=== PATIENT | male | born 1980 | race Caucasian/White ===

== ENCOUNTER → 2019-03-10 | Outpatient (CLI) | payer MEDICAID, SELFPAY ==
[2019-03-10 08:33] LABS: Absolute Lymphocyte Count 2.25 X10^3/ul (0.83-4.51); Absolute Neutrophil Count 2.6 X10^3/uL (2.0-7.7); Basophil# 0.02 X10^3/uL; Basophil% 0.4 % (0-1); Eosinophil# 0.18 X10^3/uL; Eosinophils% 3.3 % (0-5); Hematocrit 45.5 % (40-54); Hemoglobin 15.2 g/dl (13.0-16.5); Lymphocyte # 2.25 X10^3/ul (4.0); Lymphocyte % 41.2 % (19-41); Mean Corp Hgb Conc 33.4 g/gl (32-36); Mean Corpuscular Hgb 28.7 pg (27.0-32.0); Mean Platelet Vol. 10.1 fl (6.2-12.0); Monocyte# 0.43 X10^3/uL; Monocyte% 7.9 % (0-10); Neutrophil # 2.55 X10^3/uL (2.7-7.7); Neutrophil % 46.7 % (47-70); Platelet Count 260 K/mm3 (150-450); RBC Distribution Width CV 13.3 % (11.6-14.6); RBC Distribution Width SD 41.4 fl (35.1-43.9); Red Blood Count 5.29 M/mm3 (4.6-6.2); White Blood Count 5.5 K/mm3 (4.4-11.0)
[2019-03-10 08:40] LABS: POSITIVE COUNT NO; POSITIVE DIFFERENTIAL NO; POSITIVE MORPHOLOGY NO
[2019-03-10 09:05] LABS: AST(SGOT) 31 U/L (15-37); Alanine Aminotransfer ALT/SGPT 72 U/L (16-61); Albumin, Serum 3.7 g/dL (3.2-5.0); Alkaline Phosphatase 59 U/L (45-117); Anion Gap 8 (5-15); BUN 19 mg/dL (7-18); BUN/Creat Ratio 19.3 RATIO (10-20); Calcium,Total 8.9 mg/dL (8.5-10.1); Chloride 105 mmol/L (98-107); Cholesterol 212 mg/dL (200); Creatinine, Serum 0.99 mg/dL (0.70-1.30); EST Glomerular Filtration Rate 89 mL/min (>60); Est Glom Filt Rate - Afr Amer 108 mL/min (>60); Globulin 3.6 g/dL (2.2-4.2); Glucose 98 mg/dL (74-106); High Density Lipoprotein 50 mg/dL; Potassium 4.4 mmol/L (3.5-5.1); Protein, Total 7.3 g/dL (6.4-8.2); Sodium Level 141 mmol/L (136-145); Triglycerides 147 mg/dL; Very Low Density Lipoprotein 29 mg/dL (5-40)
[2019-03-14 06:07] LABS: QNTFERON TB Mitogen Value > 10.00 IU/mL (.); QNTFERON TB Nil Value 0.02 IU/mL (.); QNTFERON TB1+ Ag Value 0.02 IU/mL (.); QNTFERON TB2+ Ag Value 0.05 IU/mL (.)
[2019-03-14 11:19] LABS: QNTIFERON TB Positive Criteria Negative (Negative)
== END | disposition home or self-care (01) ==
LOC: LAB.FUTURE 08:03
PROVIDERS: Family Provider Family Medicine; PCP Family Medicine; Referring Provider Family Medicine; Visit Provider Family Medicine
DX: E78.5 Hyperlipidemia, unspecified (principal); I10 Essential (primary) hypertension; K21.9 Gastro-esophageal reflux disease without esophagitis; Z79.899 Other long term (current) drug therapy
CPT/HCPCS: 36415; 80053; 80061; 85025; 86480

== ENCOUNTER → 2019-09-01 09:22 | Outpatient (CLI) | payer MEDICAID, SELFPAY ==
[2019-09-01 10:10] LABS: Absolute Neutrophil Count 0.9 X10^3/uL (2.0-7.7); Basophil# 0.02 X10^3/uL; Basophil% 0.7 % (0-1); Eosinophil# 0.19 X10^3/uL; Eosinophils% 6.3 % (0-5); Hematocrit 46.2 % (40-54); Lymphocyte % 43.3 % (19-41); Mean Corp Hgb Conc 32.5 g/dL (32-36); Mean Corpuscular Hgb 28.9 pg (27.0-32.0); Mean Platelet Vol. 10.5 fl (6.2-12.0); Monocyte# 0.58 X10^3/uL; Monocyte% 19.3 % (0-10); NRBC Flagged by Analyzer 0 % (0-5); Neutrophil # 0.91 X10^3/uL (2.7-7.7); Neutrophil % 30.4 % (47-70); POSITIVE DIFFERENTIAL YES; Platelet Count 206 K/mm3 (150-450); RBC Distribution Width CV 13.2 % (11.6-14.6); RBC Distribution Width SD 43.5 fl (35.1-43.9); Red Blood Count 5.19 M/mm3 (4.6-6.2)
[2019-09-01 10:13] LABS: Differential Indicated SCAN CRITERIA MET
[2019-09-01 10:43] LABS: ALB/GLOB Ratio 1.1 RATIO (0.9-2.4); AST(SGOT) 51 U/L (15-37); Alanine Aminotransfer ALT/SGPT 82 U/L (16-61); Alkaline Phosphatase 69 U/L (45-117); Anion Gap 5 (5-15); BUN 18 mg/dL (7-18); BUN/Creat Ratio 14.5 RATIO (10-20); Chloride 104 mmol/L (98-107); Creatinine, Serum 1.24 mg/dL (0.70-1.30); EST Glomerular Filtration Rate 69 mL/min (>60); Est Glom Filt Rate - Afr Amer 83 mL/min (>60); Globulin 3.5 g/dL (2.2-4.2); Glucose 94 mg/dL (74-106); Potassium 4.5 mmol/L (3.5-5.1); Protein, Total 7.5 g/dL (6.4-8.2); Sodium Level 139 mmol/L (136-145)
[2019-09-01 10:46] LABS: Platelet Estimate ADEQUATE (ADEQ); Red Cell Morphology NORM C+C NORMAL (NORM C&C)
== END ==
LOC: LAB.FUTURE 09:25 → BFHLAB 02-21 13:57
PROVIDERS: Family Provider Family Medicine; PCP Family Medicine; Referring Provider Family Medicine; Visit Provider Family Medicine
DX: E78.5 Hyperlipidemia, unspecified (principal); I10 Essential (primary) hypertension; K21.9 Gastro-esophageal reflux disease without esophagitis; L40.9 Psoriasis, unspecified
CPT/HCPCS: 36415; 80053; 85025

== ENCOUNTER → 2019-10-27 | Outpatient (CLI) | payer OTHER, SELFPAY ==
[2019-10-27 10:20] LABS: Absolute Lymphocyte Count 1.98 X10^3/uL (0.83-4.51); Absolute Neutrophil Count 2.5 X10^3/uL (2.0-7.7); Basophil# 0.03 X10^3/uL; Basophil% 0.6 % (0-1); Eosinophil# 0.21 X10^3/uL; Eosinophils% 3.9 % (0-5); Hematocrit 47.7 % (40-54); Hemoglobin 15.3 g/dL (13.0-16.5); Lymphocyte # 1.98 X10^3/ul (4.0); Lymphocyte % 37.1 % (19-41); Mean Corp Hgb Conc 32.1 g/dL (32-36); Mean Corpuscular Hgb 29.1 pg (27.0-32.0); Mean Corpuscular Volume 90.7 fL (80-94); Mean Platelet Vol. 10.3 fl (6.2-12.0); Monocyte# 0.54 X10^3/uL; Monocyte% 10.1 % (0-10); NRBC Flagged by Analyzer 0 % (0-5); Neutrophil # 2.52 X10^3/uL (2.7-7.7); Neutrophil % 47.4 % (47-70); Platelet Count 252 K/mm3 (150-450); RBC Distribution Width CV 13.6 % (11.6-14.6); RBC Distribution Width SD 45.3 fl (35.1-43.9); Red Blood Count 5.26 M/mm3 (4.6-6.2); White Blood Count 5.3 K/mm3 (4.4-11.0)
[2019-10-27 11:13] LABS: AST(SGOT) 23 U/L (15-37); Alanine Aminotransfer ALT/SGPT 58 U/L (16-61); Alkaline Phosphatase 72 U/L (45-117); Anion Gap 4 (5-15); BUN 23 mg/dL (7-18); BUN/Creat Ratio 21.9 RATIO (10-20); Bilirubin, Direct 0.09 mg/dL (0.00-0.30); Calcium,Total 9.1 mg/dL (8.5-10.1); Chloride 107 mmol/L (98-107); Creatinine, Serum 1.05 mg/dL (0.70-1.30); EST Glomerular Filtration Rate 83 mL/min (>60); Est Glom Filt Rate - Afr Amer 100 mL/min (>60); Globulin 3.5 g/dL (2.2-4.2); Glucose 91 mg/dL (74-106); Potassium 4.7 mmol/L (3.5-5.1); Protein, Total 7.5 g/dL (6.4-8.2); Sodium Level 140 mmol/L (136-145)
[2019-10-31 08:08] LABS: QNTFERON TB Mitogen Value > 10.00 IU/mL (.); QNTFERON TB Nil Value 0.02 IU/mL (.); QNTFERON TB1+ Ag Value 0.02 IU/mL (.); QNTFERON TB2+ Ag Value 0.02 IU/mL (.)
[2019-10-31 14:07] LABS: QNTIFERON TB Positive Criteria Negative (Negative)
== END | disposition home or self-care (01) ==
LOC: LAB 08:21
PROVIDERS: PCP Family Medicine; Referring Provider Physician Assistant; Visit Provider Physician Assistant
DX: L40.0 Psoriasis vulgaris (principal); Z79.899 Other long term (current) drug therapy
CPT/HCPCS: 36415; 80048; 80076; 85025; 86480

== ENCOUNTER → 2020-02-23 | Outpatient (CLI) | payer OTHER, SELFPAY ==
[2020-02-23 08:19] LABS: Absolute Lymphocyte Count 2.25 X10^3/uL (0.83-4.51); Absolute Neutrophil Count 3.4 X10^3/uL (2.0-7.7); Basophil# 0.04 X10^3/uL; Basophil% 0.6 % (0-1); Eosinophil# 0.24 X10^3/uL; Eosinophils% 3.6 % (0-5); Hematocrit 45.2 % (40-54); Hemoglobin 14.6 g/dL (13.0-16.5); Lymphocyte # 2.25 X10^3/ul (4.0); Lymphocyte % 33.5 % (19-41); Mean Corp Hgb Conc 32.3 g/dL (32-36); Mean Corpuscular Hgb 28.7 pg (27.0-32.0); Mean Platelet Vol. 10.3 fl (6.2-12.0); Monocyte# 0.73 X10^3/uL; Monocyte% 10.9 % (0-10); NRBC Flagged by Analyzer 0 % (0-5); Neutrophil # 3.42 X10^3/uL (2.7-7.7); Neutrophil % 50.8 % (47-70); Platelet Count 268 K/mm3 (150-450); RBC Distribution Width CV 12.8 % (11.6-14.6); RBC Distribution Width SD 41.6 fl (35.1-43.9); Red Blood Count 5.08 M/mm3 (4.6-6.2); White Blood Count 6.7 K/mm3 (4.4-11.0)
[2020-02-23 08:44] LABS: AST(SGOT) 25 U/L (15-37); Alanine Aminotransfer ALT/SGPT 63 U/L (16-61); Albumin, Serum 3.7 g/dL (3.2-5.0); Alkaline Phosphatase 78 U/L (45-117); Anion Gap 5 (5-15); BUN 21 mg/dL (7-18); BUN/Creat Ratio 21.5 RATIO (10-20); Calcium,Total 9.2 mg/dL (8.5-10.1); Chloride 104 mmol/L (98-107); Cholesterol 136 mg/dL (200); Creatinine, Serum 0.98 mg/dL (0.70-1.30); EST Glomerular Filtration Rate 90 mL/min (>60); Est Glom Filt Rate - Afr Amer 109 mL/min (>60); Globulin 3.6 g/dL (2.2-4.2); Glucose 98 mg/dL (74-106); High Density Lipoprotein 38 mg/dL; Potassium 4.8 mmol/L (3.5-5.1); Protein, Total 7.3 g/dL (6.4-8.2); Sodium Level 138 mmol/L (136-145); Triglycerides 171 mg/dL; Very Low Density Lipoprotein 34 mg/dL (5-40)
== END | disposition home or self-care (01) ==
LOC: LAB.FUTURE 07:16
PROVIDERS: PCP Family Medicine; Visit Provider Family Medicine
DX: I10 Essential (primary) hypertension (principal); E78.5 Hyperlipidemia, unspecified; L40.9 Psoriasis, unspecified
CPT/HCPCS: 36415; 80053; 80061; 85025

== ENCOUNTER → 2021-02-07 08:05 | Outpatient (CLI) | payer OTHER, SELFPAY ==
[2021-02-07 08:59] LABS: Absolute Lymphocyte Count 2.02 X10^3/uL (0.83-4.51); Absolute Neutrophil Count 3.1 X10^3/uL (2.0-7.7); Basophil# 0.03 X10^3/uL; Basophil% 0.5 % (0-1); Eosinophil# 0.35 X10^3/uL; Eosinophils% 5.7 % (0-5); Hematocrit 46.6 % (40-54); Lymphocyte # 2.02 X10^3/ul (0.83-4.51); Mean Corp Hgb Conc 32.2 g/dL (32-36); Mean Corpuscular Hgb 28.6 pg (27.0-32.0); Mean Corpuscular Volume 88.8 fL (80-94); Mean Platelet Vol. 10.2 fl (6.2-12.0); Monocyte# 0.57 X10^3/uL; Monocyte% 9.3 % (0-10); NRBC Flagged by Analyzer 0 % (0-5); Neutrophil # 3.14 X10^3/uL (2.7-7.7); Neutrophil % 51.2 % (47-70); Platelet Count 260 K/mm3 (150-450); RBC Distribution Width CV 13.2 % (11.6-14.6); RBC Distribution Width SD 43.3 fl (35.1-43.9); Red Blood Count 5.25 M/mm3 (4.6-6.2); White Blood Count 6.1 K/mm3 (4.4-11.0)
[2021-02-07 09:21] LABS: ALB/GLOB Ratio 1.1 RATIO (0.9-2.4); AST(SGOT) 28 U/L (15-37); Alanine Aminotransfer ALT/SGPT 50 U/L (16-61); Albumin, Serum 3.9 g/dL (3.2-5.0); Alkaline Phosphatase 87 U/L (45-117); Anion Gap 3 (5-15); BUN 19 mg/dL (7-18); BUN/Creat Ratio 18.6 RATIO (10-20); Calcium,Total 9.3 mg/dL (8.5-10.1); Chloride 103 mmol/L (98-107); Cholesterol 166 mg/dL (200); Creatinine, Serum 1.02 mg/dL (0.70-1.30); EST Glomerular Filtration Rate 85 mL/min (>60); Est Glom Filt Rate - Afr Amer 103 mL/min (>60); Globulin 3.4 g/dL (2.2-4.2); Glucose 92 mg/dL (74-106); High Density Lipoprotein 48 mg/dL; Potassium 4.6 mmol/L (3.5-5.1); Protein, Total 7.3 g/dL (6.4-8.2); Sodium Level 139 mmol/L (136-145); Triglycerides 122 mg/dL; Very Low Density Lipoprotein 24 mg/dL (5-40)
[2021-02-12 12:08] LABS: Testosterone, Free 19.18 ng/dL (5.00-21.00)
[2021-02-12 15:35] LABS: Testosterone, % Free 4.82 % (1.50-4.20); Testosterone, Total 398 ng/dL (264-916)
== END ==
PROVIDERS: PCP Family Medicine; Referring Provider Family Medicine; Visit Provider Family Medicine
DX: E78.5 Hyperlipidemia, unspecified (principal); I10 Essential (primary) hypertension; K21.9 Gastro-esophageal reflux disease without esophagitis; E29.1 Testicular hypofunction
CPT/HCPCS: 36415; 80053; 80061; 84402; 84403; 85025

== ENCOUNTER 2021-09-17 17:12 | Outpatient (CLI) | payer OTHER, SELFPAY ==
[2021-09-17 17:33] VITALS: BP 137/89; PULSE 51; RESP 16; TEMP 36.8; O2SAT 96; BMI 32.1
[2021-09-17] MEDS: 0.9% Saline Lock 10 ML Syringe IV (17:51)
[2021-09-17 18:22] VITALS: BP 124/80; PULSE 60; RESP 16; TEMP 36.8; O2SAT 96
[2021-09-17 19:22] VITALS: BP 137/85; PULSE 53; RESP 16; TEMP 36.8; O2SAT 95
== END 2021-09-17 19:22 | disposition home or self-care (01) ==
LOC: MS3OUT 17:14 → MS3 17:15
PROVIDERS: PCP Family Medicine; Referring Provider Nurse Practitioner Acute Care; Visit Provider Nurse Practitioner Acute Care
DX: Z23 Encounter for immunization (principal); U07.1 COVID-19
CPT/HCPCS: J7050; M0245; Q0245; A4216

== ENCOUNTER → 2023-01-28 | Outpatient (CLI) | payer OTHER, SELFPAY ==
[2023-01-28 08:57] LABS: Absolute Lymphocyte Count 1.78 X10^3/uL (0.83-4.51); Absolute Neutrophil Count 2.4 X10^3/uL (2.0-7.7); Basophil# 0.03 X10^3/uL; Basophil% 0.6 % (0-1); Eosinophil# 0.15 X10^3/uL; Hematocrit 46.6 % (40-54); Hemoglobin 15.1 g/dL (13.0-16.5); Lymphocyte # 1.78 X10^3/ul (0.83-4.51); Lymphocyte % 35.8 % (19-41); Mean Corp Hgb Conc 32.4 g/dL (32-36); Mean Corpuscular Hgb 28.7 pg (27.0-32.0); Mean Corpuscular Volume 88.6 fL (80-94); Mean Platelet Vol. 9.7 fl (6.2-12.0); Monocyte# 0.62 X10^3/uL; Monocyte% 12.5 % (0-10); NRBC Flagged by Analyzer 0 % (0-5); Neutrophil # 2.37 X10^3/uL (2.7-7.7); Neutrophil % 47.7 % (47-70); Platelet Count 272 K/mm3 (150-450); RBC Distribution Width CV 13.4 % (11.6-14.6); RBC Distribution Width SD 43.5 fl (35.1-43.9); Red Blood Count 5.26 M/mm3 (4.6-6.2)
[2023-01-28 09:34] LABS: ALB/GLOB Ratio 1.2 RATIO (0.9-2.4); AST(SGOT) 40 U/L (15-37); Alanine Aminotransfer ALT/SGPT 60 U/L (16-61); Albumin, Serum 3.7 g/dL (3.2-5.0); Alkaline Phosphatase 70 U/L (45-117); Anion Gap 5 (5-15); BUN 20 mg/dL (7-18); BUN/Creat Ratio 21.3 RATIO (10-20); Calcium,Total 9.1 mg/dL (8.5-10.1); Chloride 103 mmol/L (98-107); Cholesterol 155 mg/dL (200); Creatinine, Serum 0.94 mg/dL (0.70-1.30); EST Glomerular Filtration Rate 93 mL/min (>60); Est Glom Filt Rate - Afr Amer 113 mL/min (>60); Globulin 3.1 g/dL (2.2-4.2); Glucose 90 mg/dL (74-106); High Density Lipoprotein 46 mg/dL; Protein, Total 6.8 g/dL (6.4-8.2); Sodium Level 137 mmol/L (136-145); Triglycerides 170 mg/dL; Very Low Density Lipoprotein 34 mg/dL (5-40)
== END | disposition home or self-care (01) ==
LOC: LAB.FUTURE 07:55 → LAB 07:57
PROVIDERS: PCP Family Medicine; Referring Provider Family Medicine; Visit Provider Family Medicine
DX: I10 Essential (primary) hypertension (principal); E78.5 Hyperlipidemia, unspecified; K21.9 Gastro-esophageal reflux disease without esophagitis
CPT/HCPCS: 36415; 80053; 80061; 85025

== ENCOUNTER → 2024-04-26 | Outpatient (CLI) | payer OTHER, SELFPAY ==
[2024-04-26 09:44] LABS: Absolute Lymphocyte Count 1.95 X10^3/uL (0.83-4.51); Basophil# 0.03 X10^3/uL; Basophil% 0.5 % (0-1); Eosinophil# 0.15 X10^3/uL; Eosinophils% 2.6 % (0-5); Hematocrit 45.4 % (40-54); Hemoglobin 15.1 g/dL (13.0-16.5); Lymphocyte # 1.95 X10^3/ul (0.83-4.51); Lymphocyte % 33.8 % (19-41); Mean Corp Hgb Conc 33.3 g/dL (32-36); Mean Corpuscular Hgb 28.8 pg (27.0-32.0); Mean Corpuscular Volume 86.6 fL (80-94); Mean Platelet Vol. 9.9 fl (6.2-12.0); Monocyte# 0.61 X10^3/uL; Monocyte% 10.6 % (0-10); NRBC Flagged by Analyzer 0 % (0-5); Neutrophil # 3.01 X10^3/uL (2.7-7.7); Neutrophil % 52.2 % (47-70); Platelet Count 285 K/mm3 (150-450); RBC Distribution Width CV 13.6 % (11.6-14.6); RBC Distribution Width SD 42.9 fl (35.1-43.9); Red Blood Count 5.24 M/mm3 (4.6-6.2); White Blood Count 5.8 K/mm3 (4.4-11.0)
[2024-04-26 10:09] LABS: ALB/GLOB Ratio 1.1 RATIO (0.9-2.4); AST(SGOT) 25 U/L (15-37); Alanine Aminotransfer ALT/SGPT 53 U/L (16-61); Albumin, Serum 3.7 g/dL (3.2-5.0); Alkaline Phosphatase 79 U/L (45-117); Anion Gap 5 (5-15); BUN 16 mg/dL (7-18); BUN/Creat Ratio 15.1 RATIO (10-20); Chloride 105 mmol/L (98-107); Cholesterol 152 mg/dL (200); Creatinine, Serum 1.06 mg/dL (0.70-1.30); EST Glomerular Filtration Rate 80 mL/min (>60); Est Glom Filt Rate - Afr Amer 97 mL/min (>60); Globulin 3.3 g/dL (2.2-4.2); Glucose 93 mg/dL (74-106); High Density Lipoprotein 49 mg/dL; Potassium 4.5 mmol/L (3.5-5.1); Sodium Level 137 mmol/L (136-145); Triglycerides 90 mg/dL; Very Low Density Lipoprotein 18 mg/dL (5-40)
== END | disposition home or self-care (01) ==
PROVIDERS: PCP Family Medicine; Referring Provider Family Medicine; Visit Provider Family Medicine
DX: I10 Essential (primary) hypertension (principal); E78.5 Hyperlipidemia, unspecified; K21.9 Gastro-esophageal reflux disease without esophagitis
CPT/HCPCS: 36415; 80053; 80061; 85025

== ENCOUNTER 2024-11-09 06:02 | Day surgery (SDC) | payer OTHER, SELFPAY ==
[2024-11-09] VITALS (8 sets, daily range): BP systolic 97–143; BP diastolic 73–93; PULSE 67–78; RESP 12–18; TEMP 36.2–36.9; O2SAT 92–98; BMI 37.7
--- NOTE | 2024-11-09 07:25 | PRE.ANES_ITS ---
ASA Classification* ASA Classification ASA Classification: 2 Assessment & Plan Anesthesia* Anesthesia Assessment Anesthesia Assessment: Discussed sedation and/or anesthesia options, risks, benefits, and alternatives with patient/parents/legal guardian/POA. Questions invited. The patient/parents/legal guardian/POA seems to understand and agrees to proceed with anesthesia plan. Reviewed the physical assessment, medical history, allergy history and patient home medications list prior to surgery/procedure/anesthetic and documented any changes. Performed airway and anesthesia risk assessments. Anesthesia Type Anesthesia Type: MAC Anesthesia Focused Assessment* Temperature: 97.3 F Pulse Rate: 73 Blood Pressure: 143/93 Respiratory Rate: 18 Pulse Ox: 98 Airway Assessment Mouth opens: >3 cm Mallampati Score: II Focused Labs Anesthesia Preop lab: CBC WBC 5.8 K/mm3 (4.4-11.0) 04/26/24 09:05 04/26/24 RBC 5.24 M/mm3 (4.6-6.2) 04/26/24 09:05 04/26/24 Hgb 15.1 g/dL (13.0-16.5) 04/26/24 09:05 04/26/24 Hct 45.4 % (40-54) 04/26/24 09:05 04/26/24 Plt Count 285 K/mm3 (150-450) 04/26/24 09:05 04/26/24 CHEMISTRY Potassium 4.5 mmol/L (3.5-5.1) 04/26/24 09:05 04/26/24 Sodium 137 mmol/L (136-145) 04/26/24 09:05 04/26/24 BUN 16 mg/dL (7-18) 04/26/24 09:05 04/26/24 Creatinine 1.06 mg/dL (0.70-1.30) 04/26/24 09:05 04/26/24 Glucose 93 mg/dL (74-106) 04/26/24 09:05 04/26/24 COAG Pre-Assessment Diagnosis/Proposed Procedure Planned Operative Procedure(s): CSCOPE Anesthesia History Anesthesia History - repairer 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 When Was Last Pacemaker Check QUESTION #4 FULL TEXT: You/Your Family Experience fever (hyperthermia) with Anesthesia Last Oral Intake Last Oral intake: Last Oral Intake NPO since 03:00 11/09/24 06:52 Meds taken in AM with sips of water? Meds patient instructed to take am of surgery PONV PONV - repairer evaporator: PONV - repairer evaporator Female No 11/07/24 13:22 HX of Motion Sickness No 11/07/24 13:22 HX of N/V After Surgery No 11/07/24 13:22 Non-Smoker Yes 11/07/24 13:22 Duration of Surgery greater No 11/07/24 13:22 than 60 minutes Number of Risk Factors 1 11/07/24 13:22 PONV Score Low Risk 11/07/24 13:22 Height & Weight Height & Weight: Anesthesia: Height & Weight Height 5 ft 8 in 11/09/24 06:52 Weight: 112.6 kg 11/09/24 06:52 Body Mass Index (BMI) 37.7 11/09/24 06:52 Respiratory Assessment Respiratory Assessment - repairer evaporator: Respiratory Tract Infection Hx - repairer evaporator Hx Respiratory Tract Infection No 11/07/24 13:22 STOP Sleep Apnea STOP Sleep Apnea - repairer evaporator: STOP Sleep Apnea - repairer evaporator Hx Hypertension Yes: CONTROLLED WITH MED 11/07/24 13:22 Hx Sleep Apnea No 11/07/24 13:22 CPAP BIPAP Do you snore loudly (louder No 11/07/24 13:22 than talking or can be heard Do you often feel tired/ No 11/07/24 13:22 fatigued/ sleepy during daytime? Has anyone observed you stop No 11/07/24 13:22 breathing during sleep? STOP Results Negative 11/07/24 13:22 QUESTION #5 FULL TEXT : Do you snore loudly (louder than talking or can be heard through closed doors)? 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 Specify any problems Hx of Preganancy in last 3 N/A 11/07/24 13:22 Months Nurse Filling Out Transfusion NBUCHER 11/07/24 13:22 & Questions: Date: 11/07/24 11/07/24 13:22 Time: 13:22 11/07/24 13:22 Patient unable to answer at this time (ie. confused, unrespo /Reproduction History /Reproductive History - repairer evaporator: /Reproductive Hx- repairer evaporator Hx Now No 11/07/24 13:22 Gestational Age (in weeks): EDC: Hx Hx Para Hx Section SAB No 11/07/24 13:22 [facility] Medical History Plaque psoriasis Wears glasses High cholesterol GERD (gastroesophageal reflux disease) History of fracture of clavicle HTN (hypertension) Home Medications ?Medication ?Instructions ?Recorded ?Last Taken ?Type lisinopril 10 mg tablet 10 mg PO DAILY 09/17/2110/27 History rosuvastatin 20 mg tablet 20 mg PO DAILY 09/17/2110/27 History esomeprazole magnesium 20 mg 20 mg PO DAILY 10/02/24 0 11/04/24 History capsule,delayed release risankizumab-rzaa 150 mg/mL 150 mg subcut Q12W 5 10/29/24 History subcutaneous syringe (Skyrizi) Allergy/AdvReac Type Severity Reaction Status Date / Time amoxicillin Allergy Hives Verified 11/09/24 06:51 Social History household members: spouse current occupational status: employed Smoking Status: Never smoker substance use type: does not use Review of Systems (Anesthesia) ROS Narrative System reviewed and no additional complaints, except as documented.
--- NOTE | 2024-11-09 07:26 | PCM.HP.STD ---
HPI - General General Date of Admission: 11/09/24 Date of Service: 11/09/24 Chief Complaint: colonoscopy HPI Narrative IVET ERNANDEZ, is a 44 M who presents screening colonoscopy. No prior. No family history [facility] Medical History Plaque psoriasis Wears glasses High cholesterol GERD (gastroesophageal reflux disease) History of fracture of clavicle HTN (hypertension) Home Medications ?Medication ?Instructions ?Recorded ?Last Taken ?Type lisinopril 10 mg tablet 10 mg PO DAILY 09/17/21 11/08/24 History rosuvastatin 20 mg tablet 20 mg PO DAILY 09/17/21 11/08/24 History esomeprazole magnesium 20 mg 20 mg PO DAILY 10/02/24 11/04/24 History capsule,delayed release risankizumab-rzaa 150 mg/mL 150 mg subcut Q12W 10/02/24 10/29/24 History subcutaneous syringe (Skyrizi) Allergy/AdvReac Type Severity Reaction Status Date / Time amoxicillin Allergy Hives Verified 11/09/24 06:51 Social History household members: spouse current occupational status: employed Smoking Status: Never smoker substance use type: does not use Vital Signs Vital Signs Vital Signs: 11/09/24 06:52 11/09/24 06:52 11/09/24 07:25 Temperature 97.3 F L 97.3 F L Temperature Source Temporal Pulse Rate 73 73 Respiratory Rate 18 18 Respiratory Pattern Normal Blood Pressure 143/93 H 143/93 H Blood Pressure Mean 109 Blood Pressure Source Monitor Blood Pressure Position Semi-Fowlers Blood Pressure Location Left Arm Pulse Ox 98 98 Oxygen Delivery Method Room Air Weight Weight: 248 lb 3.848 oz Body Mass Index (BMI) 37.7 Physical Exam Const alert, oriented x3 and no apparent distress
--- NOTE | 2024-11-09 07:29 | PCM.HP.STD ---
HPI - General General Date of Admission: 11/09/24 Chief Complaint: colonoscopy HPI Narrative IVET ERNANDEZ, is a 44 M who presents [facility] Medical History Plaque psoriasis Wears glasses High cholesterol GERD (gastroesophageal reflux disease) History of fracture of clavicle HTN (hypertension) Home Medications ?Medication ?Instructions ?Recorded ?Last Taken ?Type lisinopril 10 mg tablet 10 mg PO DAILY 09/17/21 11/08/24 History rosuvastatin 20 mg tablet 20 mg PO DAILY 09/17/21 11/08/24 History esomeprazole magnesium 20 mg 20 mg PO DAILY 10/02/24 11/04/24 History capsule,delayed release risankizumab-rzaa 150 mg/mL 150 mg subcut Q12W 10/02/24 10/29/24 History subcutaneous syringe (Skyrizi) Allergy/AdvReac Type Severity Reaction Status Date / Time amoxicillin Allergy Hives Verified 11/09/24 06:51 Social History household members: spouse current occupational status: employed Smoking Status: Never smoker substance use type: does not use Vital Signs Vital Signs Vital Signs: 11/09/24 06:52 11/09/24 06:52 11/09/24 07:25 Temperature 97.3 F L 97.3 F L Temperature Source Temporal Pulse Rate 73 73 Respiratory Rate 18 18 Respiratory Pattern Normal Blood Pressure 143/93 H 143/93 H Blood Pressure Mean 109 Blood Pressure Source Monitor Blood Pressure Position Semi-Fowlers Blood Pressure Location Left Arm Pulse Ox 98 98 Oxygen Delivery Method Room Air Weight Weight: 248 lb 3.848 oz Body Mass Index (BMI) 37.7 Assessment & Plan Assessment/Plan (1) Encounter for screening for malignant neoplasm of colon: PLAN: screening colonoscopy
--- NOTE | 2024-11-09 07:30 | COLBX_PTH ---
PATIENT: IVET ERNANDEZ LOC: [facility] U#:[id number] AGE/SX: 44/M ROOM: RE11/09/[address]: Dr. Jose Weinstein MD : 1980 BED: DIS: 11/09/2024 SPEC #: [id number] RECD: 11/09/24 10:33 STATUS: SELWYN TOUSSAINT #: [id number] JETHRO: 11/09/24 07:[address]: Jose Weinstein DEPT: SURGICAL PATHOLOGY RECD BY: Luna Paulino ENTERED: 11/09/24 12:40 SP TYPE: COLON BX OTHR DR: Dr. Crystal Sanz MD Tissues: A - Ascending colon B - Sigmoid colon biopsy Procedures: Surgery Specimen Level IV HEADER OPERATION: Colonoscopy, polypectomy PRE-OP DIAGNOSIS: Screening, polyps TISSUE SUBMITTED: A- Ascending colon polyp, B- Sigmoid colon polyp MICROSCOPIC DIAGNOSIS A. Ascending colon polyp, polypectomy: Fragments of tubular adenoma. B. Sigmoid colon polyp, polypectomy Fragments of hyperplastic polyp. SJ.mr 11/12/2024 MICROSCOPIC DESCRIPTION Slides are reviewed. GROSS DESCRIPTION A. Received in fixative is one container labeled with the patient's name and designated Ascending colon polyp. The specimen consists of multiple irregular fragments of light lopez soft tissue that in aggregate measure 0.8 x 0.4 x 0.1 cm. The specimen is totally submitted in one cassette. B. Received in fixative is one container labeled with the patient's name and designated Sigmoid colon polyp. The specimen consists of multiple irregular fragments of light lopez soft tissue that in aggregate measure 1 x 0.4 x 0.1 cm. The specimen is totally submitted in one cassette. 11/09/2024 TC:1 CPT:96820b7
--- NOTE | 2024-11-09 08:08 | OP.CCLET_ITS ---
11/09/2024 Crystal Sanz [place] [id number] [place] [address] Re : Colonoscopy procedure for Tez Chin Dear Dr. Sanz This procedure was performed on Saturday, November 09, 2024. My impressions and recommendations are as follows: Impressions : - Preparation of the colon was fair. - Internal hemorrhoids. - One 4 mm polyp in the ascending colon, removed with a cold biopsy forceps. Resected and retrieved. - One 2 mm polyp in the sigmoid colon, removed with a cold biopsy forceps. Resected and retrieved. - The examination was otherwise normal on direct and retroflexion views. Recommendations : - Discharge patient to home (ambulatory). - High fiber diet indefinitely. - Await pathology results. - Repeat colonoscopy in 3 - 5 years for surveillance. - Return to my office PRN. - Continue present medications. My findings are described in the full procedure note, which is enclosed. If I can be of further assistance, please feel free to contact me at . Sincerely, Jose Weinstein MD 11/09/2024 8:07:58 AM This report has been signed electronically.
--- NOTE | 2024-11-09 08:08 | OP.COLON_ITS ---
Patient Name: Tez Chin Procedure Date: 11/09/2024 7:30 AM Date of : 1980 Age: 44 Procedure: Colonoscopy Indications: Screening for colorectal malignant neoplasm Providers: Jose Weinstein MD Referring MD: Crystal Sanz Medicines: Monitored Anesthesia Care Patient Profile: Refer to note in patient chart for documentation of history and physical. Last Colonoscopy: none. The patient's first colonoscopy is today. Complications: No immediate complications. Estimated blood loss: Minimal. Procedure: Pre-Anesthesia Assessment: - Prior to the procedure, a History and Physical was performed, and patient medications and allergies were reviewed. The patient's tolerance of previous anesthesia was also reviewed. The risks and benefits of the procedure and the sedation options and risks were discussed with the patient. All questions were answered, and informed consent was obtained. Prior Anticoagulants: The patient has taken no anticoagulant or antiplatelet agents. ASA Grade Assessment: II - A patient with mild systemic disease. After reviewing the risks and benefits, the patient was deemed in satisfactory condition to undergo the procedure. After I obtained informed consent, the scope was passed under direct vision. Throughout the procedure, the patient's blood pressure, pulse, and oxygen saturations were monitored continuously. The colonoscope was introduced through the anus and advanced to the cecum, identified by appendiceal orifice and ileocecal valve. The ileocecal valve, appendiceal orifice, and rectum were photographed. The entire colon was well visualized. The colonoscopy was performed without difficulty. The patient tolerated the procedure well. The quality of the bowel preparation was fair. Moderate Sedation: See the other procedure note for documentation of moderate sedation with intraservice time. Scope In: 7:41:09 AM Scope Withdrawal Time 0 hours 16 minutes 31 seconds Scope Out: 8:02:43 AM Total Procedure Duration Time 0 hours 21 minutes 34 seconds Findings: The perianal and digital rectal examinations were normal. Internal hemorrhoids were found during retroflexion. The hemorrhoids were mild. A 4 mm polyp was found in the ascending colon. The polyp was semi-sessile. The polyp was removed with a cold biopsy forceps. Resection and retrieval were complete. Verification of patient identification for the specimen was done by the nurse using the patient's name, date and medical record number. Estimated blood loss was minimal. A 2 mm polyp was found in the sigmoid colon. The polyp was hyperplastic. The polyp was removed with a cold biopsy forceps. Resection and retrieval were complete. Verification of patient identification for the specimen was done by the nurse using the patient's name, date and medical record number. Estimated blood loss was minimal. The exam was otherwise without abnormality on direct and retroflexion views. Impression: - Preparation of the colon was fair. - Internal hemorrhoids. - One 4 mm polyp in the ascending colon, removed with a cold biopsy forceps. Resected and retrieved. - One 2 mm polyp in the sigmoid colon, removed with a cold biopsy forceps. Resected and retrieved. - The examination was otherwise normal on direct and retroflexion views. Recommendation: - Discharge patient to home (ambulatory). - High fiber diet indefinitely. - Await pathology results. - Repeat colonoscopy in 3 - 5 years for surveillance. - Return to my office PRN. - Continue present medications. Procedure Code(s): --- Professional --- 14218, Colonoscopy, flexible; with biopsy, single or multiple Diagnosis Code(s): --- Professional --- Z12.11, Encounter for screening for malignant neoplasm of colon K64.8, Other hemorrhoids D12.5, Benign neoplasm of sigmoid colon D12.2, Benign neoplasm of ascending colon CPT copyright 2021 [employer]. All rights reserved. The codes documented in this report are preliminary and upon digital strategy specialist review may be revised to meet current compliance requirements. Jose Weinstein MD 11/09/2024 8:07:58 AM This report has been signed electronically. Number of Addenda: 0 Note Initiated On: 11/09/2024 7:30 AM
--- NOTE | 2024-11-09 08:12 | PCM.POST.ANE ---
Anesthesia: Postop Eval I Current Vital Signs Temperature: 97.8 F Pulse Rate: 76 Blood Pressure: 99/76 Respiratory Rate: 16 Pulse Ox: 93 Oxygen Delivery Method: Room Air Assessment Airway patent: Yes Spontaneous unlabored respirations: Yes Mental status: Asleep nausea: No Vomiting: No Anesthesia Complication: No Fluid Hydration Crystalloid volume administer (ml): 75 Total IV fluid infused: 75 Progress Note Anesthesia document: Postop Eval 1 completed: Yes
== END 2024-11-09 08:44 | disposition home or self-care (01) ==
LOC: EN 06:03 → AC 06:04
PROVIDERS: PCP Family Medicine; Referring Provider Family Medicine; Visit Provider Surgery
PROC: 0DJD8ZZ Inspection of Lower Intestinal Tract, Via Natural or Artificial Opening Endoscopic (ICD-10-PCS; CPT 45378; principal; 2024-11-09 07:25)
DX: Z12.11 Encounter for screening for malignant neoplasm of colon (principal); K64.8 Other hemorrhoids; D12.5 Benign neoplasm of sigmoid colon; E78.00 Pure hypercholesterolemia, unspecified; I10 Essential (primary) hypertension; D12.2 Benign neoplasm of ascending colon; K21.9 Gastro-esophageal reflux disease without esophagitis; Z79.899 Other long term (current) drug therapy
CPT/HCPCS: 45380; 88305; A4216; J2405

== ENCOUNTER → 2025-05-23 | Outpatient (CLI) | payer OTHER, SELFPAY ==
--- OUTSIDE RECORDS SUMMARY | 2025-05-23 06:10 | XMS RPT_ITS | CCD ---
Author Organization [facility] Care Team Providers Care Managing Director Name Role Phone [place], Karolina February Unavailable Unavailab le [place], Karolina February Unavailable Unavailab le [place], Karolina February Unavailable Unavailab le [place], Karolina February Unavailable Unavailab le [place], Karolina February Unavailable Unavailab le [place], Karolina February Unavailable Unavailab le Pilz, Yady L Unavailable Unavailable Pilz, Yady L Unavailable Unavailable [place], Karolina February Unavailable Unavailab le [place], Karolina February Unavailable Unavailab le [place], Karolina February Unavailable Unavailab le [place], Karolina February Unavailable Unavailab le [place], Karolina February Unavailable Unavailab le [place], Karolina February Unavailable Unavailab le [place], Karolina February Unavailable Unavailab le [place], Karolina February Unavailable Unavailab le [place], Karolina February Unavailable Unavailab le [place], Karolina February Unavailable Unavailab le [place], Karolina February Unavailable Unavailab Mahin Jin Unavailable Unavailable [place], Karolina February Unavailable Unavailab le [place], Karolina February Unavailable Unavailab le [place], Karolina February Unavailable Unavailab Gema Renteria Attending Unavailable Miedel, Crystal Primary Care Unavailable Miedel, Crystal Primary Care Unavailable Jose Weinstein Consulting Unavailable Jose Weinstein Attending Unavailable Miedel, Crystal Referring Unavailable Jose Weinstein Attending Unavailable Miedel, Crystal Primary Care Unavailable Miedel, Crystal Referring Unavailable Miedel, Crystal Primary Care Unavailable Umu Crystal Attending Unavailable Miedel, Crystal Referring Unavailable Tomasz Wang Attending Unavailable Miedel, Crystal Primary Care Unavailable Allergies Allergy Classification Reported Allergen(s) Allergy Type Date of Onset Reaction(s) Facility (1 source) Amoxicillin Drug Allergy 11-09-2024 [facility] Repository Medications Current Medications Medication Drug Class(es) Dates Sig (Normalized) Sig (Original) [id number] 200 actuat albuterol 0.09 mg/actuat metered dose inhaler (1 source) beta2-Adrenergic Agonist Start: 09-17-2021 take 90 ug by inhalation twice daily as needed Albuterol Sulfate Active 90 MCG INHALATION TWICE DAILY NEEDED September 17, 2021 1:00am dexamethasone 6 mg oral tablet (1 source) Corticosteroid Start: 09-17-2021 take 6 mg by mouth once daily Dexamethasone Active 6 MG PO DAILY September 17, 2021 1:00am esomeprazole 20 mg delayed release oral capsule (1 source) Proton Pump Inhibitor Start: 09-17-2021 take 20 mg by mouth once daily Esomeprazole Magnesium Active 20 MG PO DAILY September 17, 2021 1:00am lisinopril 10 mg oral tablet (1 source) Angiotensin Converting Enzyme Inhibitor Start: 09-17-2021 take 10 mg by mouth once daily Lisinopril Active 10 MG PO DAILY September 17, 2021 1:00am rosuvastatin calcium 20 mg oral tablet (1 source) HMG-CoA Reductase Inhibitor Start: 09-17-2021 take 20 mg by mouth once daily Rosuvastatin Active 20 MG PO DAILY September 17, 2021 1:00am Problems Active Problems Problem Classification Problem Date Documented Da te Episodic/Chronic Viral infection (1 source) Disease caused by 2019-nCoV; Translations: [COVID-19] 09-17-2021 Episodic Past or Other Problems Problem Classification Problem Date Documented Date Episodic/Chronic Administrative/social admission (2 sources) Administrative reason for encounter; Translations: [Encounter for other administrative examinations] Onset: 09-07-2024 07-09-2020 Episodic Other screening for suspected conditions (not mental disorders or infectious disease) (2 sources) Encounter for screening for malignant neoplasm of colon; Translations: [Encounter for screening for malignant neoplasm of colon] Onset: 11-15-2024 Episodic Results Test Name Value Interpretation Reference Range Facility Colonoscopy Reporton 025 Colonoscopy Report [facility] Medical Records Department [address] [place] [address] Colonoscopy Report MR#: [id number] Acct: [id number] Name: IVET CHIN Rep #: [id number] : 1980 44 From: Jose Weinstein MD PCP: Dr. Crystal Sanz MD Status:REG [facility] Patient Name: Ivet Chin Procedure Date: 11/09/2024 7:30 AM Date of : 1980 Age: 44 Procedure: Colonoscopy Indications: Screening for colorectal malignant neoplasm Providers: Jose Weinstein MD Referring MD: Crystal Sanz Medicines: Monitored Anesthesia Care Patient Profile: Refer to note in patient chart for documentation of history and physical. Last Colonoscopy: none. The patient's first colonoscopy is today. Complications: No immediate complications. Estimated blood loss: Minimal. Procedure: Pre-Anesthesia Assessment: - Prior to the procedure, a History and Physical was performed, and patient medications and allergies were reviewed. The patient's tolerance of previous anesthesia was also reviewed. The risks and benefits of the procedure and the sedation options and risks were discussed with the patient. All questions were answered, and informed consent was obtained. Prior Anticoagulants: The patient has taken no anticoagulant or antiplatelet agents. ASA Grade Assessment: II - A patient with mild systemic disease. After reviewing the risks and benefits, the patient was deemed in satisfactory condition to undergo the procedure. After I obtained informed consent, the scope was passed under direct vision. Throughout the procedure, the patient's blood pressure, pulse, and oxygen saturations were monitored continuously. The colonoscope was introduced through the anus and advanced to the cecum, identified by appendiceal orifice and ileocecal valve. The ileocecal valve, appendiceal orifice, and rectum were photographed. The entire colon was well visualized. The colonoscopy was performed without difficulty. The patient tolerated the procedure well. The quality of the bowel preparation was fair. Moderate Sedation: See the other procedure note for documentation of moderate sedation with intraservice time. Scope In: 7:41:09 AM Scope Withdrawal Time 0 hours 16 minutes 31 seconds Scope Out: 8:02:43 AM Total Procedure Duration Time 0 hours 21 minutes 34 seconds Findings: The perianal and digital rectal examinations were normal. Internal hemorrhoids were found during retroflexion. The hemorrhoids were mild. A 4 mm polyp was found in the ascending colon. The polyp was semi-sessile. The polyp was removed with a cold biopsy forceps. Resection and retrieval were complete. Verification of patient identification for the specimen was done by the nurse using the patient's name, date and medical record number. Estimated blood loss was minimal. A 2 mm polyp was found in the sigmoid colon. The polyp was hyperplastic. The polyp was removed with a cold biopsy forceps. Resection and retrieval were complete. Verification of patient identification for the specimen was done by the nurse using the patient's name, date and medical record number. Estimated blood loss was minimal. The exam was otherwise without abnormality on direct and retroflexion views. Impression: - Preparation of the colon was fair. - Internal hemorrhoids. - One 4 mm polyp in the ascending colon, removed with a cold biopsy forceps. Resected and retrieved. - One 2 mm polyp in the sigmoid colon, removed with a cold biopsy forceps. Resected and retrieved. - The examination was otherwise normal on direct and retroflexion views. Recommendation: - Discharge patient to home (ambulatory). - High fiber diet indefinitely. - Await pathology results. - Repeat colonoscopy in 3 - 5 years for surveillance. - Return to my office PRN. - Continue present medications. Procedure Code(s): --- Professional --- 37793, Colonoscopy, flexible; with biopsy, single or multiple Diagnosis Code(s): --- Professional --- Z12.11, Encounter for screening for malignant neoplasm of colon K64.8, Other hemorrhoids D12.5, Benign neoplasm of sigmoid colon D12.2, Benign neoplasm of ascending colon CPT copyright 2021 [employer]. All rights reserved. The codes documented in this report are preliminary and upon director of food and nutrition services review may be revised to meet current compliance requirements. Jose Weinstein MD 11/09/2024 8:07:58 AM This report has been signed electronically. Number of Addenda: 0 Note Initiated On: 11/09/2024 7:30 AM 11/09/24 0808 Date Jose Weinstein MD Cosigner Signature: Date (if indicated) CC: Dr. Crystal Sanz MD; Dr. Jose Weinstein MD Date Dictated: 11/09/24729 Date Transcribed: Transcri (more content not included)... [facility] MR/POSTOP.ANE 11-09-2024 MR/POSTOP.[facility] Medical Records Department [address] [place] [address] Anesthesia Postop Eval I 11/09/24811 MR#: [id number] Acct: [id number] Name: IVET CHIN Rep #: [id number] : 1980 44 From: Alex Mayen PCP: Dr. Crystal Sanz MD Status:REG [facility] Y Race: C Location: [place] [address] Anesthesia: Postop Eval I Current Vital Signs Temperature: 97.8 F Pulse Rate: 76 Blood Pressure: 99/76 Respiratory Rate: 16 Pulse Ox: 93 Oxygen Delivery Method: Room Air Assessment Airway patent: Yes Spontaneous unlabored respirations: Yes Mental status: Asleep nausea: No Vomiting: No Anesthesia Complication: No Fluid Hydration Crystalloid volume administer (ml): 75 Total IV fluid infused: 75 Progress Note Anesthesia document: Postop Eval 1 completed: Yes 11/09/24812 Date Alex Bliss Signature: Date CC: Signed [facility] MR/[id number] 11-09-2024 MR/POSTOPAN2 [facility] Medical Records Department [address] [place] [address] Anesthesia Postop Eval II 11/09/24811 MR#: [id number] Acct: [id number] Name: IVET CHIN Rep #: [id number] : 1980 44 From: Erik Figueroa MD PCP: Dr. Crystal Sanz MD Status:REG [facility] Y Race: C Location: [place] [address] Anesthesia Postop Eval I Sum Anesthesia Postop Eval I Summary Anesthesia Postop Eval I Summary: Anesthesia Postop Eval I: Assessment Summary Airway patent Spontaneous unlabored respirations Mental status nausea Vomiting Anesthesia Postop Eval I: Fluid Summary Crystalloid volume administer (ml) Colloids volume administered ( ml) Blood Product volume administered (ml) Total IV fluid infused Anesthesia Postop Eval I: Summary Notes Anesthesia Complication Anesthesia Complication Comment: Post-operative progress note Anesthesia: Postop Eval II Evaluation Mental status: Awake Pain Level: 0 nausea: No Vomiting: No 11/09/24812 Date Erik Figueroa MD Cosigner Signature: Date CC: Signed Normal [facility] Surgery Specimen Level Jasmin 11-09-2024 Surgery Specimen Level IV -------- Patient Age/Sex Location Account Attending Physician -------- IVET CHIN 44/M EN [id number] Dr. Jose Weinstein MD -------- Specimen: [id number] Received: 11/09/24 Status: SELWYN Daley Num: [id number] Spec Type: COLON BX Subm Dr: Dr. Jose Weinstein MD HEADER OPERATION: Colonoscopy, polypectomy PRE-OP DIAGNOSIS: Screening, polyps TISSUE SUBMITTED: A- Ascending colon polyp, B- Sigmoid colon polyp -------- MICROSCOPIC DIAGNOSIS A. Ascending colon polyp, polypectomy: Fragments of tubular adenoma. B. Sigmoid colon polyp, polypectomy Fragments of hyperplastic polyp. SJ.mr 11/12/2024 MICROSCOPIC DESCRIPTION Slides are reviewed. GROSS DESCRIPTION A. Received in fixative is one container labeled with the patient's name and designated Ascending colon polyp. The specimen consists of multiple irregular fragments of light lopez soft tissue that in aggregate measure 0.8 x 0.4 x 0.1 cm. The specimen is totally submitted in one cassette. B. Received in fixative is one container labeled with the patient's name and designated Sigmoid colon polyp. The specimen consists of multiple irregular fragments of light lopez soft tissue that in aggregate measure 1 x 0.4 x 0.1 cm. The specimen is totally submitted in one cassette. MS.mr 11/09/2024 TC:1 CPT:59845h0 -------- Patient Age/Sex Location Account Attending Physician -------- IVET CHIN 44/M EN [id number] Dr. Jose Weinstein MD -------- Signed (signature on file) Dr. Tim Kidd MD 11/12/24 1204 -------- Normal [facility] Comment on above: Performed By: #### P GABY #### [facility] Laboratory [address] [place], [place], [id number] Urgent Care Visit Reporton 1 11-08-2023 Urgent Care Visit Report [facility] [place] [address], [address] [place], [place] [address] [phone] OFFICE VISIT Date of Service: 09/07/24 MR#: [id number] Acct: [id number] Name: IVET CHIN Rep #: [id number] : 1980 Provider: ANDREE Manuel Age/Sex: 44/M Location: [facility] Status: Signed Intake Vital Signs 06/24/23 09:12 Height 5 ft 8 in 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 Please see corresponding scanned documents with today's date. Office Procedures Physical Exam Coding PE Coding Pre-employment PE: Yes Coding Level of Care Code No Charge Diagnoses Encounter for examination required by Department of Transportation (DOT) Z02.89 Assessment and Plan Assessment and Plan (1) Encounter for examination required by Department of Transportation (DOT): Status: Acute 09/07/24 1020 Date [facility]: Date (if applicable) CC: Normal [facility] Absolute lymphocyte countOrd ered By: Dr. Sanz on 01-28-2023 Lymphocytes Auto (Unsp spec) [#/Vol] 1.78 10*3/uL 0.83-4.51 [facility] Basophil percentageOrdered B y: Dr. Sanz on 01-28-2023 Basophils/100 WBC (Bld) 0.6 % 0-1 [facility] Bilirubin [Mass/Vol] 0.60 mg/dL 0.20-1.00 [facility] Comment on above: For patients on eltr ombopag therapy, use of Dimension [place] TBIL is not recommended. Chloride [Moles/Vol] 103 mmol/L 98-107 [facility] Cholesterol [Mass/Vol] 155 mg/dL <200 [facility] Comment on above: <200 mg/dL Desirable 200-240 mg/dL Borderline >240 mg/dL High Risk Eosinophils/100 WBC (Bld) 3.0 % 0-5 [facility] Glucose [Mass/Vol] 90 mg/dL 74-106 [facility] Neutrophils (Bld) [#/Vol] 2.4 10*3/uL 2.0-7.7 [facility] Neutrophils/100 WBC (Bld) 47.7 % 47-70 [facility] Potassium [Moles/Vol] 5.0 mmol/L 3.5-5.1 [facility] Comment on above: Moderate Hemolysis, Result may be falsely increased. Protein [Mass/Vol] 6.8 g/dL 6.4-8.2 [facility] Sodium [Moles/Vol] 137 mmol/L 136-145 [facility] Triglyceride [Mass/Vol] 170 mg/dL <199 [facility] Comment on above: The drugs N-Acetylcy steine and Metamizole may falsely depress this assay.Serum Triglycerides Reference Interval Normal <150 mg/dL Borderline high 150 - 199 mg/dL High 200 - 499 mg/dL Very High > or = 500 mg/dL WBC (Bld) [#/Vol] 5.0 10*3/uL 4.4-11.0 [facility] Blood erythrocytes count (nu mber/volume)Ordered By: Dr. Sanz on 01-28-2023 RBC (Bld) [#/Vol] 5.26 10*6/uL 4.6-6.2 [facility] Blood hemoglobin measurement (mass/volume)Ordered By: Dr. Sanz on 01-28-2023 Hemoglobin (Bld) [Mass/Vol] 15.1 g/dL 13.0-16.5 [facility] Blood lymphocytes/100 leukoc ytesOrdered By: Dr. Sanz on 01-28-2023 Lymphocytes/100 WBC (Bld) 35.8 % 19-41 [facility] Blood monocytes/100 leukocyt esOrdered By: Dr. Sanz on 01-28-2023 Monocytes/100 WBC (Bld) 12.5 % 0-10 [facility] Blood platelet mean volumeOr dered By: Dr. Sanz on 01-28-2023 Platelet mean volume (Bld) [Entitic vol] 9.7 fL 6.2-12.0 [facility] Determination of erythrocyte mean corpuscular volume (MCV)Ordered By: Dr. Sanz on 01-28-2023 MCV (RBC) [Entitic vol] 88.6 fL 80-94 [facility] Hematocrit Auto (Bld) [Volum e fraction]Ordered By: Dr. Sanz on 01-28-2023 Hematocrit (Bld) [Volume fraction] 46.6 % 40-54 [facility] Laboratory - Chemistry and C hemistry - challengeOrdered By: Dr. Sanz on 01-28-2023 ALP [Catalytic activity/Vol] 70 U/L 45-117 [facility] ALT [Catalytic activity/Vol] 60 U/L 16-61 [facility] CO2 [Moles/Vol] 29.0 mmol/L 21.0-32.0 [facility] Globulin (S) [Mass/Vol] 3.1 g/dL 2.2-4.2 [facility] Urea nitrogen/Creatinine [Mass ratio] 21.3 mg/mg 10-20 [facility] Laboratory - Hematology and Cell countsOrdered By: Dr. Sanz on 01-28-2023 Erythrocyte distribution width (RBC) [Entitic vol] 43.5 fL 35.1-43.9 [facility] Erythrocyte distribution width (RBC) [Ratio] 13.4 % 11.6-14.6 [facility] Immature granulocytes/100 WBC (Bld) 0.400 % 0.0-0.9 [facility] Comment on above: IG% - Immature Granu locytes (promyelocytes, myelocytes and metamyelocytes) > 1% indicates that a LEFT SHIFT is Present. MCH (RBC) [Entitic mass] 28.7 pg 27.0-32.0 [facility] Nucleated RBC/100 WBC (Bld) [Ratio] 0 % 0-5 [facility] MCHC Auto (RBC) [Mass/Vol]Or dered By: Dr. Sanz on 01-28-2023 MCHC (RBC) [Mass/Vol] 32.4 g/dL 32-36 [facility] No Panel InformationOrdered By: Dr. Sanz on 01-28-2023 Estimated GFR (MDRD) Amer 113 mL/min >60 [facility] Comment on above: GFR Calc Estimated GFR (MDRD) Non-Af Amer 93 mL/min >60 [facility] Comment on above: Non- GFR Calc Platelets bldOrdered By: Dr. Sanz on 01-28-2023 Platelets (Bld) [#/Vol] 272 10*3/uL 150-450 [facility] Serum or plasma albumin min urement (mass/volume)Ordered By: Dr. Sanz on 01-28-2023 Albumin [Mass/Vol] 3.7 g/dL 3.2-5.0 [facility] Serum or plasma albumin/glob ulin mass ratioOrdered By: Dr. Sanz on 01-28-2023 Albumin/Globulin [Mass ratio] 1.2 {ratio} 0.9-2.4 [facility] Serum or plasma calcium min urement (mass/volume)Ordered By: Dr. Sanz on 01-28-2023 Calcium [Mass/Vol] 9.1 mg/dL 8.5-10.1 [facility] Serum or plasma cholesterol in HDL measurement (mass/volume)Ordered By: Dr. Sanz on 01-28-2023 Cholesterol in HDL [Mass/Vol] 46 mg/dL >40 [facility] Comment on above: The drugs N-Acetylcy steine and Metamizole may falsely depress this assay. Reference Range HDL <40 mg/dL Low HDL Cholesterol HDL >or= 60 mg/dL High HDL Cholesterol Serum or plasma cholesterol in VLDL measurement (mass/volume)Ordered By: Dr. Sanz on 01-28-2023 Cholesterol in VLDL [Mass/Vol] 34 mg/dL 5-40 [facility] Serum or plasma creatinine m easurement (mass/volume)Ordered By: Dr. Sanz on 01-28-2023 Creatinine [Mass/Vol] 0.94 mg/dL 0.70-1.30 [facility] Comment on above: The validity of the calculated GFR & GFRAA in patients over 70 years has not been determined. Clinical correlation is essential. Serum or plasma low density lipoprotein (LDL) cholesterol measurement (mass/volume)Ordered By: Dr. Sanz on 01-28-2023 Cholesterol in LDL [Mass/Vol] 75 mg/dL 0-130 [facility] Serum or plasma urea nitroge n measurement (mass/volume)Ordered By: Dr. Sanz on 01-28-2023 Urea nitrogen [Mass/Vol] 20 mg/dL 7-18 [facility] Thin prep Papanicolaou smear with manual screeningOrdered By: Dr. Sanz on 01-28-2023 Thin prep Papanicolaou smear with manual screening 40 U/L 15- [facility] Comment on above: Moderate Hemolysis, Result may be falsely increased. Thin prep Papanicolaou smear with manual screening 5 5-15 [facility] CT Coronary Artery Calcium S core - SCREEon 09-08-2018 Calcium mass conc Exam Date/Time:09/08/2018 10:08 ESTReason for Exam:SCREENING FOR HEART DISEASE HTN HYPERLIPIDEMIA FM HX HEART DISEASE;ScreeningRepo rtSTUDY:CT Coronary Artery Calcium Score - SCREE; 09/08/2018 10:08 amINDICATION:Julieta blackburnCOMPARISON:None.ACC ESSION NUMBER(S):[id number] CLINICIAN:Karolina Foster:Thom scherer prospective ECG gating, CT scan of the coronary arteries was performed without intravenous contrast. Coronary calcium scoring was performed according to the method of Agatston.FINDINGS:The score and distribution of calcium in the coronary arteries is as follows:LM 0,LAD 0.5,0.5 mm2LCx 6.5,3 mm2RCA 0,Total 7The visualized mid/lower ascending thoracic aorta measures 3.3 cm in diameter. The visualized descending thoracic aorta is within normal limits for course and caliber. The heart is within normal limits for size. No pericardial effusion is present. No gross mediastinal lymphadenopathy is identified.There is no focal infiltrate, pleural effusion or pneumothorax identified. No discrete pulmonary nodules or masses are seen within the visualized lungs.IMPRESSION:1. Coronary artery calcium score of 7, which places the patient in the low risk category, as below.Coronary artery calcium scoring may be helpful in predicting the risk for future coronary heart disease events. According to the [employer] Clinical Expert Consensus Task Force, such testing provides important prognostic information in patients with more than one coronary heart disease risk factor. The coronary artery calcium score correlates with the annual risk of a non-fatal myocardial infarction or coronary heart disease .Exam Date/Time:09/08/2018 10:08 ESTReportCoronary artery score Annual Risk0-99 0.4%100-399 1.3%>400 2.4%These three breakpoints correspond to lower, intermediate and high risk states for future coronary events. Such information should be used, along with appropriate clinical judgment, to make decisions regarding the intensity of risk factor management strategies to treat blood lipids and to modify other non-lipid coronary risk factors.Reference: [place] P et al. Circulation. 2007; 115:402-426 FINAL REPORT Dictated: 09/08/2018 10:40 am Augustine Byrd MD CSigned (Electronic Signature): 09/08/2018 10:40 amSigned by: Augustine Byrd MD Technologist: SRH Normal [facility] Testost Totalon 08-24-2018 Testoster Tot 284 ng/dL Normal [facility] Comment on above: Result Comment: MALE KIARA STAGE FEMALE KIARA STAGE 1 <3 1 <3 - 6 2 <3 - 432 2 <3 - 10 3 65 - 778 3 <3 - 24 4 180 - 763 4 <3 - 27 5 188 - 882 5 5 - 38 MALE ADULT 264 - 916 FEMALE ADULT 20-49 years 8 - 48 >49 years 3 - 41 Adult male reference interval is based on a population of healthy nonobese males (BMI <30) between 19 and 39 years old. Jan et.al. JCEM 2017,102;5467-6969. PMID: [id number].Performed At: [facility] [id number] [place], [place] [id number] Vincent PhD Ph:[phone] Performed By: #### 1 [id number] ####[id number] [place] [address] CMPon 08-23-2018 Anion gap 3 molar conc 10 mmol/L Normal 10-20 [facility] Comment on above: Performed By: #### 2 [id number] ####HESHAM [id number] [place] [address] Albumin mass conc 4.2 g/dL Normal 3.4-5.0 [facility] Comment on above: Performed By: #### 2 [id number] ####HESHAM [id number] [place] [address] Albumin/Globulin mass ratio 1.8 {ratio} Normal 1.1-1.9 [facility] Comment on above: Performed By: #### 2 [id number] ####[facility] Rptzcwsf1322 [place] [address] Alk Phos 60 Int._Unit/L Normal 33-120 [facility] Comment on above: Performed By: #### 2 [id number] ####[facility] Optryhvo7626 [place] [address] ALT enzyme act/vol 40 Int._Unit/L Normal 10-52 [facility] Comment on above: Performed By: #### 2 [id number] ####[facility] [place] [address] AST enzyme act/vol 25 Int._Unit/L Normal 9-39 [facility] Comment on above: Result Comment: MILD HEMOLYSIS DETECTED. The result may be falsely elevated due to hemolysis or other interferents. Clinical correlation is recommended. Repeat testing may be considered. Performed By: #### 2 [id number] ####HESHAM Qqspzbdk9426 [place] [address] Bili Total 0.4 mg/dL Normal 0.0-1.2 [facility] Comment on above: Performed By: #### 2 587393 ####HESHAM Cvdvibke8957 [place] [address] Calcium mass conc 9.4 mg/dL Normal 8.6-10.3 [facility] Comment on above: Performed By: #### 2 107803 ####[facility] Kpxlqnmr0617 [place] [address] Chloride molar conc 106 mmol/L Normal 98-107 [facility] Comment on above: Performed By: #### 2 189416 ####[facility] Ibhagtrv6423 [place] [address] CO2 molar conc 26.0 mmol/L Normal 21.0-32.0 [facility] Comment on above: Performed By: #### 2 435123 ####HESHAM Obuyhewt2932 [place] [address] Creatinine mass conc 1.0 mg/dL Normal 0.5-1.3 [facility] Comment on above: Performed By: #### 2 807448 ####HESHAM Vnpanmpv9685 [place] [address] Globulin Calculated mass conc (S) 2.0 g/dL Normal 2.0-4.0 [facility] Comment on above: Performed By: #### 2 741194 ####[facility] Nexscvnh5124 [place] [address] Glucose mass conc 99 mg/dL Normal 70-99 [facility] Comment on above: Performed By: #### 2 683049 ####HESHAM Oudlnmed7842 [place] [address] Potassium molar conc 4.3 mmol/L Normal 3.5-5.3 [facility] Comment on above: Result Comment: MILD HEMOLYSIS DETECTED. The result may be falsely elevated due to hemolysis or other interferents. Clinical correlation is recommended. Repeat testing may be considered. Performed By: #### 2 450164 ####HESHAM Ueytehyf7796 [place] [address] Protein mass conc 6.6 g/dL Normal 6.4-8.2 [facility] Comment on above: Performed By: #### 2 271818 ####HESHAM Gxexwazg2889 [place] [address] Sodium molar conc 138 mmol/L Normal 136-145 [facility] Comment on above: Performed By: #### 2 431559 ####HESHAM Dtgknbza1082 [place] [address] Urea nitrogen mass conc 29 mg/dL High 6-23 [facility] Comment on above: Performed By: #### 2 663266 ####HESHAM Auscsjip6223 [place] [address] Urea nitrogen/Creatinine mass ratio 29.0 ratio Normal 5.4-30.0 [facility] Comment on above: Performed By: #### 2 077729 ####HESHAM Rjegbcmg4736 [place] [address] Lipid Profileon 08-23-2018 Cholesterol in HDL mass conc 39 mg/dL Low 40-60 [facility] Comment on above: Performed By: #### 3 [id number] ####HESHAM Elvvxgls4258 [place] [address] Cholesterol in LDL mass conc 125 mg/dL Normal 0-130 [facility] Comment on above: Result Comment: <100 [id number] NEAR / ABOVE [id number] BORDERLINE TOLX412-325 HIGH>190 VERY HIGHCALC LDL NOT VALID WHEN TRIGLYCERIDE IS >400 MG/DL Performed By: #### 3 [id number] ####HESHAM Yizadtma0024 [place] [address] Cholesterol in VLDL mass conc 36 mg/dL Normal 0-40 [facility] Comment on above: Performed By: #### 3 [id number] ####HESHAM Qscmpcor8998 [place] [address] Cholesterol mass conc 200 mg/dL High 0-199 [facility] Comment on above: Result Comment: TOTA L CHOLEESTEROL: <200 NORMAL 200 - 239 BORDERLINE HIGH >240 HIGH Performed By: #### 3 [id number] ####HESHAM Yrjtupit6793 [place] [address] Triglyceride mass conc 179 mg/dL High 0-149 [facility] Comment on above: Result Comment: AGE DESIRABLE BORDERLINE HIGH 91 D - 9 Y 0 - 74 75 - 99 > 03907 - 19 Y 0 - 89 90 - 129 > 18248 -24 Y 0 - 114 115 - 149 > 150> 25 0 - 149 150 - 199 200 - 499 Performed By: #### 3 [id number] ####HESHAM Jdwudhdv1218 [place] [address] eGFRon 08-23-2018 eGFR AA >60 [facility] Comment on above: Order Comment: Order added by Discern Expert. Performed By: #### 1 [id number] ####HESHAM ZuoIhst5222 [place] [address] GFR/1.73 sq M predicted among non-blacks MDRD vol rate/area (S/P/Bld) mL/min/{1.73_m2} [facility] Comment on above: Order Comment: Order added by Discern Expert. Performed By: #### 1 [id number] ####HESHAM HgkZbhf9567 [place] [address] Lab Miscellaneouson 12-14-19 Status See Ref Lab Report Normal [facility] Comment on above: Performed By: #### 1 [id number] ####HESHAM Send Outs [address] [place] [address] Hep A,B, C Panelon 8 Hep A IgM Negative Normal Negative [facility] Comment on above: Performed By: #### 1 [id number] ####HESHAM Send Outs [address]inrsmtb[address] [place] [address] Hep B Core IgM Negative Normal Negative [facility] Comment on above: Performed By: #### 1 [id number] ####HESHAM Send Outs [address] [place] [address] Hep C Ab <0.1 Normal 0.0-0.9 [facility] Comment on above: Result Comment: Nega tive: < 0.8 Indeterminate: 0.8 - 0.9 Positive: > 0.9 The CDC recommends that a positive HCV antibody result be followed up with a HCV Nucleic Acid Amplification test (201086).Performed At: [facility] [id number] Vincent PhD Ph:[phone] Performed By: #### 1 [id number] ####HESHAM Send Outs [address] [place] [address] Auto Diffon 12-09-2017 Basophils Auto #/vol (Bld) 0.0 E3/mcL Normal 0.0-0.2 [facility] Comment on above: Order Comment: Order Added by Discern Expert. Performed By: #### 2 970459 ####HESHAM RioKqlq1378 [place] [address] Basophils/100 WBC Auto (Bld) 0.5 % Normal 0.0-2.0 [facility] Comment on above: Order Comment: Order Added by Discern Expert. Performed By: #### 2 767641 ####HESHAM Bu[address]Zhcc[address] [place] [address] Eos Absolute 0.2 E3/mcL Normal 0.0-0.7 [facility] Comment on above: Order Comment: Order Added by Discern Expert. Performed By: #### 2 200374 ####HESHAM SullivanNkxWpka7843 [place] [address] Eosinophils/100 WBC Auto (Bld) 3.3 % Normal 0.0-11.0 [facility] Comment on above: Order Comment: Order Added by Discern Expert. Performed By: #### 2 617544 ####HESHAM SullivanRsxDuqz1245 [place] [address] Lymphocytes Auto #/vol (Bld) 1.9 E3/mcL Normal 1.2-3.4 [facility] Comment on above: Order Comment: Order Added by Discern Expert. Performed By: #### 2 064840 ####HESHAM Kayo1025 [place] [address] Lymphocytes/100 WBC Auto (Bld) 32.0 % Normal 20.0-55.0 [facility] Comment on above: Order Comment: Order Added by Discern Expert. Performed By: #### 2 426143 ####HESHAM SullivanTgoFwdi5019 [place] [address] [place] Absolute 0.6 E3/mcL Normal 0.0-0.7 [facility] Comment on above: Order Comment: Order Added by Discern Expert. Performed By: #### 2 487599 ####HESHAM SullivanOicOobx2672 [place] [address] Monocytes/100 WBC Auto (Bld) 9.6 % Normal 0.0-10.0 [facility] Comment on above: Order Comment: Order Added by Discern Expert. Performed By: #### 2 913328 ####HESHAM SullivanMrcSgps3852 [place] [address] Neutro Absolute 3.2 E3/mcL Normal 1.4-6.5 [facility] Comment on above: Order Comment: Order Added by Discern Expert. Performed By: #### 2 837692 ####HESHAM SullivanZykWppd6374 [place] [address] Neutro Auto 54.6 % Normal 37.0-75.0 [facility] Comment on above: Order Comment: Order Added by Discern Expert. Performed By: #### 2 724179 ####HESHAM SullivanPhnEbuk0731 [place] [address] CBC w/ Auto Diffon 8 Erythrocyte distribution width Auto Ratio (RBC) 13.7 % Normal 11.5-14.5 [facility] Comment on above: Performed By: #### 2 983678 ####HESHAM [address] [place] 7174805 Hematocrit Auto Volume Fraction (Bld) 45.6 % Normal 42.0-52.0 [facility] Comment on above: Performed By: #### 2 415774 ####HESHAM SullivanYbpKadi4706 [place] [address] Hemoglobin mass conc (Bld) 15.1 g/dL Normal 13.5-18.0 [facility] Comment on above: Performed By: #### 2 961027 ####HESHAM SullivanFrgMpvv8804 [place] [address] MCH Auto Entitic mass (RBC) 29.1 pg Normal 27.0-31.0 [facility] Comment on above: Performed By: #### 2 994022 ####HESHAM SullivanHebHyvx6083 [place] [address] MCHC Auto mass conc (RBC) 33.1 g/dL Normal 33.0-37.0 [facility] Comment on above: Performed By: #### 2 811013 ####HESHAM SullivanSamFpdk6298 [place] 7174805 MCV Auto Entitic volume (RBC) 88.0 fL Normal 78.0-100.0 [facility] Comment on above: Performed By: #### 2 458342 ####HESHAM SullivanHawZrqb6964 [place] [address] Platelet mean volume Auto Entitic volume (Bld) 8.4 fL Normal 7.4-11.0 [facility] Comment on above: Performed By: #### 2 657337 ####HESHAM SullivanLutQfzu8458 [place] [address] Platelets Auto #/vol (Bld) 257 E3/mcL Normal 130-400 [facility] Comment on above: Performed By: #### 2 624674 ####HESHAM SullivanVfqLboz7370 [place] [address] RBC Auto #/vol (Bld) 5.18 E6/mcL Normal 3.90-6.10 [facility] Comment on above: Performed By: #### 2 208878 ####HESHAM Kayo1025 [place] [address] WBC Auto #/vol (Bld) 5.8 E3/mcL Normal 3.6-11.0 [facility] Comment on above: Performed By: #### 2 733852 ####HESHAM Kayo1025 [place] [address] CMPon 12-09-2017 Albumin mass conc 4.3 g/dL Normal 3.2-5.0 [facility] Comment on above: Performed By: #### 2 467664 ####HESHAM Weeks1025 [place] [address] Albumin/Globulin mass ratio 1.3 {ratio} Normal 1.1-1.9 [facility] Comment on above: Performed By: #### 2 210944 ####HESHAM QzvSjbx1153 [place] [address] Alk Phos 64 Int._Unit/L Normal 42-121 [facility] Comment on above: Performed By: #### 2 385824 ####HESHAM QudJyfz6931 [place] [address] ALT enzyme act/vol 50 Int._Unit/L High 10-40 [facility] Comment on above: Performed By: #### 2 425421 ####HESHAM ByhQpyd3889 [place] [address] AST enzyme act/vol 30 Int._Unit/L Normal 10-42 [facility] Comment on above: Performed By: #### 2 633247 ####HESHAM SullivanTnjKcld5216 [place] [address] Bili Total 1.0 mg/dL Normal 0.2-1.0 [facility] Comment on above: Performed By: #### 2 769852 ####HESHAM PrlGtga9187 [place] [address] Creatinine mass conc 0.9 mg/dL Normal 0.6-1.3 [facility] Comment on above: Performed By: #### 2 242211 ####HESHAM WweNkvv4262 [place] [address] Globulin Calculated mass conc (S) 3.2 g/dL Normal 2.0-4.0 [facility] Comment on above: Performed By: #### 2 188342 ####HESHAM AckJwbj0588 [place] [address] Protein mass conc 7.5 g/dL Normal 6.4-8.3 [facility] Comment on above: Performed By: #### 2 661392 ####HESHAM ZsuWqyd2308 [place] [address] Urea nitrogen mass conc 16 mg/dL Normal 7-18 [facility] Comment on above: Performed By: #### 2 637896 ####HESHAM YoiAcdg5831 [place] [address] Urea nitrogen/Creatinine mass ratio 17.8 ratio Normal 5.4-30.0 [facility] Comment on above: Performed By: #### 2 703243 ####HESHAM VawLick3503 [place] [address] Calcium mass conc 9.6 mg/dL Normal 8.4-10.2 [facility] Comment on above: Performed By: #### 2 547633 ####HESHAMDalton WeeksTegCllt3901 [place] [address] Chloride molar conc 101 mmol/L Normal 98-107 [facility] Comment on above: Performed By: #### 2 471172 ####HESHAM FeiRplp8398 [place] [address] CO2 molar conc 27.6 mmol/L Normal 24.0-30.0 [facility] Comment on above: Performed By: #### 2 799656 ####HESHAMDalton WeeksOozCsev5542 [place] [address] Glucose mass conc 98 mg/dL Normal 70-99 [facility] Comment on above: Performed By: #### 2 512317 ####HESHAMDalton WeeksFncEfqd3406 [place] [address] Potassium molar conc 4.3 mmol/L Normal 3.5-5.1 [facility] Comment on above: Performed By: #### 2 989155 ####HESHAM SullivanYnoAzdq0049 [place] [address] Sodium molar conc 137 mmol/L Normal 136-145 [facility] Comment on above: Performed By: #### 2 328708 ####HESHAM SullivanAjaQvnx9682 [place] [address] Lab Miscellaneouson 12-10-19 18 Test Name quantiferon Normal [facility] Comment on above: Performed By: #### 1 [id number] ####HESHAM Sinclair Z[address]jhkvdlzy1456 [place] [address] Lipid Profileon 12-09-2017 Cholesterol in HDL mass conc 41 mg/dL Normal >=41 [facility] Comment on above: Performed By: #### 3 0758141 ####HESHAM Weeks1025 [place] [address] Cholesterol in LDL mass conc 146 mg/dL High 0-130 [facility] Comment on above: Result Comment: <100 AOTQWZI184-480 NEAR / ABOVE [id number] BORDERLINE USFP681-104 HIGH>190 VERY HIGHCALC LDL NOT VALID WHEN TRIGLYCERIDE IS >400 MG/DL Performed By: #### 3 [id number] ####HESHAM SullivanCseTlzf3723 [place] [address] Cholesterol in VLDL mass conc 29 mg/dL Normal [facility] Comment on above: Performed By: #### 3 [id number] ####HESHAM SullivanFwrPkbt7695 [place] [address] Cholesterol mass conc 216 mg/dL High 50-200 [facility] Comment on above: Result Comment: TOTA L CHOLEESTEROL: <200 NORMAL 200 - 239 BORDERLINE HIGH >240 HIGH Performed By: #### 3 [id number] ####HESHAM SullivanBiyRhrq1082 [place] [address] Triglyceride mass conc 147 mg/dL Normal 35-150 [facility] Comment on above: Result Comment: <150 [id number] BORDERLINE [id number] HIGH>500 VERY HIGH Performed By: #### 3 [id number] ####HESHAM SullivanNvuLipo2396 [place] [address] eGFRon 12-09-2017 eGFR AA >60 Normal [facility] Comment on above: Order Comment: Order added by Discern Expert. Performed By: #### 1 [id number] ####HESHAM YypPaxf4218 [place] [address] GFR/1.73 sq M predicted among non-blacks MDRD vol rate/area (S/P/Bld) mL/min/{1.73_m2} Normal [facility] Comment on above: Order Comment: Order added by Discern Expert. Performed By: #### 1 [id number] ####HESHAM RyvHyfc7471 [place] [address] Vital Signs Date Time Vital Sign Value Performing Clinician French valles 12-10-2017 09:06-0400 Body surface area Derived from formula [facility] Comment on above: Performed By: #### 1 [id number] ####HESHAM [facility] Outs Cyikusunxg7419 [place] [address] Encounters Encounter Date Encounter Type Care Provider Facility Start: 05-09-2025 ambulatory [facility] Facility: [facility] Start: 11-09-2024 ambulatory [facility] Facility: [facility] Start: 11-09-2024 End: 11-09-2024 ambulatory Jose Weinstein Facility:[facility] Start: 10-02-2024 ambulatory Gema Stewart Facility:[facility] Start: 09-07-2024 End: 09-07-2024 ambulatory [facility] Facility:[facility] Start: 01-28-2023 End: 01-28-2023 ambulatory [facility] Work Phone: Start: 01-28-2023 End: 01-28-2023 Patient encounter procedure [facility] Start: 09-08-2018 Patient encounter procedure [employer] [employer]ting Facility:[id number] Start: 09-08-2018 End: 09-09-2018 Patient encounter procedure Karolina [facility] Facility:[facility] Start: 09-08-2018 Patient encounter procedure Karolina [facility] Facility:[id number] Start: 08-28-2018 End: 08-29-2018 Patient encounter procedure Karolina [facility] Facility:[facility] Start: 08-23-2018 End: 08-24-2018 Patient encounter procedure Karolina Hong Facility:[facility] Start: 08-23-2018 Patient encounter procedure [employer] Facility:9509 Start: 12-13-2017 End: 12-14-2017 Patient encounter procedure Karolina Hong Facility:[facility] Start: 12-09-2017 End: 12-10-2017 Patient encounter procedure Yady Lehman Facility:[facility] Procedures Date Procedure Procedure Detail Performing Clinician Start: 09-08-2018 Follow-up visit Payers Date Payer Category Payer Self-pay [id number] 2020 Unknown [id number] 2018 Unknown 2017 Private Health Insurance 1979 Unknown [id number] 2.16.84 0.1.083129.3.579.2. 1979 Unknown [id number] 2.16.84 0.1.903089.3.579.2. 1979 Unknown [id number] 2.16.84 0.1.952935.3.579.2. 1979 Unknown [id number] 2.16.84 0.1.289616.3.579.2. 1979 Unknown [id number] 2.16.84 0.1.961858.3.579.2. 1979 Unknown [id number] 2.16.84 0.1.201215.3.579.2. 1979 Unknown [id number] 2.16.840.1.361168.3.579.2.356 1979 Unknown [id number] 2.16.840.1.040900.3.579.2.356 1979 Unknown [id number] 2.16.840.1.717678.3.579.2.356 Unknown [id number] Unknown [facility] [id number] Unknown [id number] 2.16.8 40.1.788862.3.579.2.462 Unknown [id number] 2.16.8 40.1.272617.3.579.2.462 Unknown [id number] 2.16.8 40.1.860570.3.579.2.462 Unknown [id number] 2.16.8 40.1.758307.3.579.2.462 Unknown [id number] 2.16.8 40.1.001570.3.579.2.462 Social History Date Type Detail Facility [facility] if ever smoked [facility] Work Phone: Start: 1980 Sex Assigned At Male [facility] Clinical Note 11-09-2024 Note Date & Type Note Facility 11-09-2024 Note [facility] Medical Records Department [address] [place] [address] History Physical Exam 11/09/24 0729 MR#: [id number] Acct: [id number] Name: IVET CHIN Rep #: [id number] : 1980 44 From: Jose Weinstein MD PCP: Dr. Crystal Sanz MD Status:[facility] Location: [place] [address] HPI - General General Date of Admission: 11/09/24 Chief Complaint: colonoscopy HPI Narrative IVET CHIN, is a 44 M who presents [facility] Medical History Plaque psoriasis Wears glasses High cholesterol GERD (gastroesophageal reflux disease) History of fracture of clavicle HTN (hypertension) Home Medications ???Medication ???Instructions ???Recorded ???Last Taken ???Type lisinopril 10 mg tablet 10 mg PO DAILY 09/17/21 11/08/24 H istory rosuvastatin 20 mg tablet 20 mg PO DAILY 09/17/21 11/08/24 H istory esomeprazole magnesium 20 mg 20 mg PO DAILY 10/02/24 11/04/24 H istory capsule,delayed release risankizumab-rzaa 150 mg/mL 150 mg subcut Q12W 10/02/24 History subcutaneous syringe (Skyrizi) Allergy/AdvReac Type Severity Reaction Status Date / Time amoxicillin Allergy Hives Verified 11/09/24 06:51 Social History household members: spouse current occupational status: employed Smoking Status: Never smoker substance use type: does not use Vital Signs Vital Signs Vital Signs: 11/09/24 06:52 11/09/24 06:52 11/09/24 07:25 Temperature 97.3 F L 97.3 F L Temperature Source Temporal Pulse Rate 73 73 Respiratory Rate 18 18 Respiratory Pattern Normal Blood Pressure 143/93 H 143/93 H Blood Pressure Mean 109 Blood Pressure Source Monitor Blood Pressure Position Semi-Fowlers Blood Pressure Location Left Arm Pulse Ox 98 98 Oxygen Delivery Method Room Air Weight Weight: 248 lb 3.848 oz Body Mass Index (BMI) 37.7 Assessment Plan Assessment/Plan (1) Encounter for screening for malignant neoplasm of colon: PLAN: screening colonoscopy 11/09/24 07 Cosigner Signature (if applicable): CC: Dr. Crystal Sanz MD; Dr. Jose Weinstein MD Signed [facility] Clinical Note 11-09-2024 Note Date & Type Note Facility 11-09-2024 Note [facility] Medical Records Department [address] [place] [address] History Physical Exam 11/09/24725 MR#: [id number] Acct: [id number] Name: IVET CHIN Rep #: [id number] : 1980 44 From: Jose Weinstein MD PCP: Dr. Crystal Sanz MD Status:[facility] Location: [place] [address] HPI - General General Date of Admission: 11/09/24 Date of Service: 11/09/24 Chief Complaint: colonoscopy HPI Narrative IVET CHIN, is a 44 M who presents screening colonoscopy. No prior. No family history [facility] History Plaque psoriasis Wears glasses High cholesterol GERD (gastroesophageal reflux disease) History of fracture of clavicle HTN (hypertension) Home Medications ???Medication ???Instructions ???Recorded ???Last Taken ???Type lisinopril 10 mg tablet 10 mg PO DAILY 09/17/21 11/08/24 H istory rosuvastatin 20 mg tablet 20 mg PO DAILY 09/17/21 11/08/24 H istory esomeprazole magnesium 20 mg 20 mg PO DAILY 10/02/24 11/04/24 H istory capsule,delayed release risankizumab-rzaa 150 mg/mL 150 mg subcut Q12W 10/02/24 History subcutaneous syringe (Skyrizi) Allergy/AdvReac Type Severity Reaction Status Date / Time amoxicillin Allergy Hives Verified 11/09/24 06:51 Social History household members: spouse current occupational status: employed Smoking Status: Never smoker substance use type: does not use Vital Signs Vital Signs Vital Signs: 11/09/24 06:52 11/09/24 06:52 11/09/24 07:25 Temperature 97.3 F L 97.3 F L Temperature Source Temporal Pulse Rate 73 73 Respiratory Rate 18 18 Respiratory Pattern Normal Blood Pressure 143/93 H 143/93 H Blood Pressure Mean 109 Blood Pressure Source Monitor Blood Pressure Position Semi-Fowlers Blood Pressure Location Left Arm Pulse Ox 98 98 Oxygen Delivery Method Room Air Weight Weight: 248 lb 3.848 oz Body Mass Index (BMI) 37.7 Physical Exam Const alert, oriented x3 and no apparent distress 11/09/24 0729 Cosigner Signature (if applicable): CC: Dr. Crystal Sanz MD; Dr. Jose Weinstein MD Signed [facility] Evaluation note Note Date & Type Note Facility Evaluation note No assessment information availa ble [facility] Work Phone: Summary Purpose Family History No Family History Records FoundNo Family History Records FoundNo Family History Records FoundNo Family History Records Found Advance Directives No Advanced Directives Records FoundNo Advanced Directives Records FoundNo Advanced Directives Records FoundNo Advanced Directives Records Found Additional Source Comments (unrecognized sect ion and content) No Status Records FoundNo Status Records FoundNo Status Records FoundNo Status Records Found INFORMATION SOURCE (unrecogn ized section and content) DATE CREATED AUTHOR 09/10/2018 [employer] DATE CREATED AUTHOR AUTHOR'S ORGANIZ ATION 09/11/2018 [facility] DATE CREATED AUTHOR AUTHOR'S ORGANIZ ATION 09/12/2018 [facility] DATE CREATED AUTHOR AUTHOR'S ORGANIZ ATION 05/11/2025 [facility] Care Teams (unrecognized sec tion and content) Team Status: Active Member Role Status Dates Dr. Crystal Sanz MD Family Provider Active Dr. Crystal Sanz MD Primary Care Provider Active Team Status: Inactive Member Role Status Dates Dr. Crystal Sanz MD Primary Care Prov ider, Attending Provider, Referring Provider Active Goals (unrecognized section and content) Goals may be documented in a n alternate section FOR RECORDS PERTAINING TO PATIENTS WHO ARE OR HAVE BEEN ENROLLED IN A CHEMICAL DEPENDENCY/SUBSTANCEABUSE PROGRAM, SOME INFORMATION MAY BE OMITTED. This clinical summary was aggregated from multiple sources. Caution should be exercised in using it in the provision of clinical care. This summary normalizes information from multiple sources, and as a consequence, information in this document may materially change the coding, format and clinical context of patient data. In addition, data may be omitted in some cases. CLINICAL DECISIONS SHOULD BE BASED ON THE PRIMARY CLINICAL RECORDS. [facility] [employer] provides no warranty or guarantee of the accuracy or completeness of information in this document.
[2025-05-23 06:44] LABS: Hematocrit 45.5 % (40-54); Hemoglobin 15.3 g/dL (13.0-16.5); Immature Granulocytes Count 0.030 X10^3/uL (0.0-0.0); Mean Corp Hgb Conc 33.6 g/dL (32-36); Mean Corpuscular Volume 87.3 fL (80-94); Mean Platelet Vol. 10.0 fl (6.2-12.0); NRBC Flagged by Analyzer 0 % (0-5); Platelet Count 237 K/mm3 (150-450); RBC Distribution Width CV 13.4 % (11.6-14.6); RBC Distribution Width SD 42.5 fl (35.1-43.9); Red Blood Count 5.21 M/mm3 (4.6-6.2); White Blood Count 6.0 K/mm3 (4.4-11.0)
[2025-05-23 07:16] LABS: AST(SGOT) 35 U/L (<=37); Alanine Aminotransfer ALT/SGPT 64 U/L (<=46); Albumin, Serum 4.2 g/dL (3.5-5.0); Alkaline Phosphatase 68 U/L (40-129); Anion Gap 8 (5-15); BUN 19 mg/dL (4-19); BUN/Creat Ratio 18.5 RATIO (10-20); Calcium,Total 9.8 mg/dL (7.6-11.0); Carbon Dioxide 27.1 mmol/L (21.0-32.0); Chloride 103 mmol/L (98-108); Cholesterol 162 mg/dL (<=200); Globulin 2.3 g/dL (2.2-4.2); Glucose 98 mg/dL (70-99); Low Density Lipoprotein Calc. 84 mg/dL; Potassium 5.3 mmol/L (3.3-5.1); Triglycerides 146 mg/dL; Very Low Density Lipoprotein 29 mg/dL (5-40); cholesterol:hdl ratio screen 3.35
== END | disposition home or self-care (01) ==
LOC: LAB 06:07
PROVIDERS: PCP Family Medicine; Referring Provider Family Medicine; Visit Provider Family Medicine
DX: E78.5 Hyperlipidemia, unspecified (principal); I10 Essential (primary) hypertension; K21.9 Gastro-esophageal reflux disease without esophagitis
CPT/HCPCS: 36415; 80053; 80061; 85025